=== PATIENT | male | born 1955 | race Caucasian/White ===

== ENCOUNTER 2022-04-18 10:00 | Emergency (ER) | payer MEDICARE, SELFPAY ==
--- NOTE | 2022-04-18 10:07 | ED.SKABFB ---
HPI - Skin/Abscess/Foreign Bdy General Chief complaint: Skin/Abscess/Foreign Body Stated complaint: Rash chest and back neck pain Time Seen by Provider: 04/18/22 10:07 Source: patient and RN notes reviewed History of Present Illness HPI narrative: Patient is 66-year-old male who presents the urgent care with complaints of a rash that is itchy, painful and tingling to the left chest and radiating to the left upper back. Patient states he noticed it this morning however he has had pain and tingling in his back and chest for the last several days. Patient denies of any use of [id number] medication for his pain. No acute distress noted. Patient aware of the plan of care. Some parts of this dictation were generated by voice recognition software and may contain typographical and/or grammatical inaccuracies. Related Data Home Medications Medication Instructions Recorded Confirmed calcium polycarbophil 625 mg 1,250 mg PO BID 10/30/19 12/12/21 tablet (FiberCon) omeprazole 20 mg capsule,delayed 20 mg PO DAILY 10/30/19 12/12/21 release cetirizine 10 mg tablet (Zyrtec) 10 mg PO DAILY PRN 01/31/21 12/12/21 Allergies Allergy/AdvReac Type Severity Reaction Status Date / Time amoxicillin Allergy Intermediate rash Verified 12/12/21 10:03 Penicillins Allergy Mild Rash Verified 12/12/21 10:03 Review of Systems Review of Systems: CONSTITUTIONAL: Denies fever, chills, or sweats. EYES: Denies visual changes, redness, or discharge. ENT: Denies rhinorrhea, congestion, sore throat, or otalgia. CARDIOVASCULAR: Denies chest pain, palpitations, or edema. RESPIRATORY: Denies cough or dyspnea. GASTROINTESTINAL: Denies abdominal pain, nausea, vomiting, or diarrhea. GENITOURINARY: Denies dysuria or hematuria. SKIN: Reports of a painful itchy rash to the left chest and left back MUSCULOSKELETAL: Denies back pain, joint pain, or myalgia. NEUROLOGIC: Denies headache, numbness, or weakness. All other systems reviewed are negative, except as documented in HPI. I PMF Past Medical History Medical History Gastro-esophageal reflux disease without esophagitis Hepatitis C antibody test negative (12/05/21) Hyperlipidemia Rhinosinusitis Sleep apnea in adult Family History Family History Mother Hypertension Family history of glaucoma Father Family history of heart disease in male family member before age 55 Other Diabetes mellitus Family history of malignant neoplasm Social History Social History Smoking end date: 10/28/77 Alcohol intake: current Comments At the time of my signature, I reviewed and agree with the nursing past medical, surgical, social, and family history. There is no relevant family history pertinent to the patient complaint. Exam Narrative: GENERAL: This is a well-nourished, well-developed patient, in no apparent distress. HEAD: normocephalic, atraumatic. EYES: PERRL. Sclera clear/white. Vision is grossly intact. EARS: External ears normal NOSE: External nose normal with no obvious nasal discharge, nares without redness, no rhinorrhea. THROAT: Mucous membranes moist NECK: Neck supple CARDIOVASCULAR: Regular rate and rhythm without murmurs, gallops, or rubs. RESPIRATORY: Clear to auscultation. Breath sounds equal bilaterally. No wheezes, rales, or rhonchi. SKIN: Vesicular erythemic herpes zoster dermatitis noted to the left chest above the breast following the dermatome to the posterior shoulder blade stopping directly at the spine. Warm, intact with no suspicious lesions or rash, good texture and turgor. NEURO: awake, alert, and oriented to person, place and time. There were no obvious focal neurologic abnormalities. EXTREMITIES: No clubbing, cyanosis, or edema. Course Course Level of Care: Express Care Visit Vital Signs Vital
[2022-04-18 10:09] VITALS: BP 123/90; PULSE 65; RESP 16; TEMP 36.4; O2SAT 99
== END 2022-04-18 10:26 | disposition home or self-care (01) ==
PROVIDERS: Emergency Provider Nurse Practitioner Family; PCP Family Medicine
DX: B02.9 Zoster without complications (principal); Z87.891 Personal history of nicotine dependence; K21.9 Gastro-esophageal reflux disease without esophagitis; E78.5 Hyperlipidemia, unspecified
CPT/HCPCS: 99213; G0463

== ENCOUNTER 2022-06-12 11:22 | Day surgery (SDC) | payer MEDICARE, SELFPAY ==
[2022-05-10 13:52] VITALS: BMI 29.3
[2022-05-24 14:22] VITALS: BMI 29.2
[2022-06-12 11:52] VITALS: BMI 28.4
[2022-06-12 12:00] VITALS: BP 128/72; PULSE 59; RESP 16; TEMP 36.3; O2SAT 99
--- NOTE | 2022-06-12 12:20 | P.HP_ITS ---
H&P: HPI History of Present Illness Date/Time: 06/12/22 12:20 Chief Complaint: GE reflux disease. And belching Narrative: this is a 66-year-old white male patient presents for EGD. He has a history of chronic GE reflux disease and heartburn. This currently controlled taking omeprazole. Recently has noted excess belching. Occasionally feels bloated. Recent colonoscopy unremarkable he was felt to have irritable bowel syndrome fiber supplementation has been implemented. He currently is on CPAP. Family history noncontributory. Review of Systems Review of Systems: Review of systems noncontributory. [facility] Past Medical History Medical History Gastro-esophageal reflux disease without esophagitis Hepatitis C antibody test negative (12/05/21) Hyperlipidemia Rhinosinusitis Sleep apnea in adult Family History Family History Mother Hypertension Family history of glaucoma Father Family history of heart disease in male family member before age 55 Other Diabetes mellitus Family history of malignant neoplasm Social History Social History Smoking status: Former smoker Smoking end date: 10/28/77 Alcohol intake: unknown Substance use type: does not use Living arrangements: with family Spiritual care concerns: No Meds Home Medications and Allergies Home Medications Medication Instructions Recorded Confirmed Type calcium polycarbophil 625 mg 1,250 mg PO BID 10/30/19 05/24/22 History tablet (FiberCon) omeprazole 20 mg capsule,delayed 20 mg PO DAILY 10/30/19 05/24/22 History release cetirizine 10 mg tablet (Zyrtec) 10 mg PO DAILY 01/31/21 05/24/22 History fluoxetine 20 mg capsule 20 mg PO DAILY #90 caps 01/18/22 05/24/22 Rx simvastatin 5 mg tablet See Rx Instructions .Route 04/11/22 05/24/22 Rx .COMPLEX #90 tabs Allergies Allergy/AdvReac Type Severity Reaction Status Date / Time amoxicillin Allergy Intermediate rash Verified 05/24/22 14:12 Penicillins Allergy Mild Rash Verified 05/24/22 14:12 Exam Narrative: Physical exam reveals patient to be alert. Vital signs stable. HEENT exam is unremarkable. Patient is anicteric. Lungs are clear to auscultation and percussion. Heart is without murmur or extra sounds. Abdomen bowel sounds present soft nontender with no organomegaly. Digital rectal exam normal. Assessment and Plan Assessment and plan (1) Belching: Code(s): R14.2 - Eructation Status: Acute Assessment and Plan: Patient complains of frequent belching. This likely is related to dietary intake. He does have acid reflux. Plan to try supplemental simethicone or Gas- X performed to see if there is any additional organic disease. (2) Gastro-esophageal reflux disease without esophagitis: Code(s): K21.9 - Gastro-esophageal reflux disease without esophagitis Status: Chronic Assessment and Plan: GE reflux disease described. Currently well controlled on omeprazole. Continue her at during Gas-X to control belching. EGD will be performed for screening purposes to exclude Carr's esophagus etc..
--- NOTE | 2022-06-12 12:33 | WPDANESEPPF ---
Anes - Initial Pre Proc Eval Procedure: Operation Date: 06/12/22 13:00 Proposed Procedures p Esophagogastroduodenoscopy - Galileo Montoya MD Date/Time: 06/12/22 12:33 Surgeon: Galileo Montoya MD Pre Op Diagnosis: Gerd Patient Data Age: 66 Gender: M Height: 1.8 m Weight: 92.6 kg Allergies Allergy/AdvReac Type Severity Reaction Status Date / Time amoxicillin Allergy Intermediate rash Verified 05/24/22 14:12 Penicillins Allergy Mild Rash Verified 05/24/22 14:12 Home Medications Medication Instructions Recorded Confirmed Type calcium polycarbophil 625 mg 1,250 mg PO BID 10/30/19 05/24/22 History tablet (FiberCon) omeprazole 20 mg capsule,delayed 20 mg PO DAILY 10/30/19 05/24/22 History release cetirizine 10 mg tablet (Zyrtec) 10 mg PO DAILY 01/31/21 05/24/22 History fluoxetine 20 mg capsule 20 mg PO DAILY #90 caps 01/18/22 05/24/22 Rx simvastatin 5 mg tablet See Rx Instructions .Route 04/11/22 05/24/22 Rx .COMPLEX #90 tabs Patient hx anesthesia problems: none Family hx anesthesia problems: none Results Review: All pre-operative results and documents have been reviewed as part of the pre-operative evaluation. [facility] Past Medical History Medical History Depression Gastro-esophageal reflux disease without esophagitis Hepatitis C antibody test negative (12/05/21) Hyperlipidemia Rhinosinusitis Sleep apnea in adult Family History Family History Mother Hypertension Family history of glaucoma Father Family history of heart disease in male family member before age 55 Other Diabetes mellitus Family history of malignant neoplasm Social History Social History Smoking status: Former smoker Smoking end date: 10/28/77 Alcohol intake: unknown Substance use type: does not use Living arrangements: with family Spiritual care concerns: No Anes - Eval Final PreProcedure Day of Procedure 06/12/22 12:33 Patient weight: overweight Heart: regular rate and rhythm Lungs: clear to auscultation Airway: Mallampati scale class II Neurological: alert and oriented Last oral intake: >/= 8 hours ASA classification: III Emergent: no Anesthetic plan: proceed Anesthesia type and monitoring: general GIVS and standard monitoring Results Review: All pre-operative results and documents have been reviewed as part of the pre-operative evaluation. Informed Consent: The patient's anesthetic plan and its attendant risks and benefits were discussed with the patient/family/POA. Questions were solicited and answers provided to the satisfaction of the patient/family/POA.
[2022-06-12] MEDS: LACTATED RINGERS 1,000 ML 150 ML IV CONT (12:42)
[2022-06-12 13:11] VITALS: BP 95/62; PULSE 56; RESP 18; O2SAT 97
[2022-06-12 13:21] VITALS: BP 119/78; PULSE 58; RESP 18; O2SAT 99
[2022-06-12 13:31] VITALS: PULSE 55; RESP 18; O2SAT 100
--- NOTE | 2022-06-12 13:55 | WPDANESPN ---
Anes - Prog Note Post-Op Date/Time: 06/12/22 13:55 Cardiovascular status: normal Respiratory status: normal Airway patency: baseline Mental status: baseline Post-Op hydration status: normal Vital Signs: Last Vital Signs Temp 36.3 C L 06/12/22 12:00 Pulse 55 L 06/12/22 13:31 Resp 18 06/12/22 13:31 BP 119/78 06/12/22 13:21 Pulse Ox 100 06/12/22 13:31 O2 Del Method Room Air 06/12/22 13:31 Pain Score (VAS): 0 I/O: Intake & Output 06/11/22 06/12/22 06/12/22 23:59 07:59 15:59 Intake Total 250 Balance 250 Patient Feedback: Patient satisfied with anesthetic care.
== END 2022-06-12 13:40 | disposition home or self-care (01) ==
PROVIDERS: PCP Family Medicine; Visit Provider Internal Medicine Gastroenterology
PROC: 0DJ08ZZ Inspection of Upper Intestinal Tract, Via Natural or Artificial Opening Endoscopic (ICD-10-PCS; CPT 43235; principal; 2022-06-12 13:00)
DX: K21.9 Gastro-esophageal reflux disease without esophagitis (principal)
CPT/HCPCS: 43239

== ENCOUNTER → 2023-09-09 11:22 | Outpatient (CLI) | payer MEDICARE, SELFPAY ==
--- NOTE | ~2023-09-09 | XR_ITS ---
XR knee LT 3V DATE: 09/09/2023 11:30 INDICATION: Left knee pain. No injury. TECHNIQUE: AP, lateral, sunrise views COMPARISON: 11/24/2014 left knee FINDINGS: There is enthesopathy of the patella at the quadriceps and patellar tendon insertions. There is mild suprapatellar knee joint effusion. There is mild periarticular spurring of the patella consistent with patellofemoral osteoarthritis. There is moderate loss of height of the medial compartment joint space and slight periarticular spurr ing of the medial and lateral tibial plateaus. No fracture or dislocation, periosteal reaction or bone destruction, radiopaque intra-articular loose body or chondrocalcinosis is detected. IMPRESSION: Patellar enthesopathy Mild knee joint effusion Tricompartment moderate osteoarthritis, most prominent at the medial compartment, Reviewed, dictated and finalized at location B. 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
== END ==
PROVIDERS: PCP Nurse Practitioner; Visit Provider Nurse Practitioner
DX: M25.462 Effusion, left knee (principal); M17.12 Unilateral primary osteoarthritis, left knee; M77.32 Calcaneal spur, left foot
CPT/HCPCS: 73562

== ENCOUNTER 2024-05-21 07:28 | Outpatient (NON) | payer MEDICARE, SELFPAY | END 2024-05-21 07:29 | disposition home or self-care (01) | LOC: ANHLAB 05-22 07:29 | PROVIDERS: PCP Family Medicine; Visit Provider Internal Medicine Gastroenterology | DX: R19.4 Change in bowel habit (principal) | CPT/HCPCS: 88305 ==

== ENCOUNTER 2024-05-21 08:31 | Day surgery (SDC) | payer MEDICARE, SELFPAY ==
[2024-04-08 15:12] VITALS: BMI 31.3
[2024-05-08 14:12] VITALS: BMI 30.7
--- NOTE | 2024-05-21 09:17 | WPDANESEPPF ---
Anes - Initial Pre Proc Eval Procedure: Operation Date: 05/21/24 10:30 Proposed Procedures p Esophagogastroduodenoscopy - Galileo Montoya MD s Diagnostic Colonoscopy - Galileo Montoya MD Date/Time: 05/21/24 09:17 Surgeon: Galileo Montoya MD Pre Op Diagnosis: Diarrhea unspecified, nausea Patient Data Age: 68 Gender: M Height: 1.8 m Weight: 100 kg Allergies Allergy/AdvReac Type Severity Reaction Status Date / Time amoxicillin Allergy Intermediate rash Verified 05/21/24 09:12 Penicillins Allergy Mild Rash Verified 05/21/24 09:12 Home Medications Medication Instructions Recorded Confirmed Type omeprazole 20 mg capsule,delayed 20 mg PO DAILY 10/30/19 05/08/24 History release cetirizine 10 mg tablet (Zyrtec) 10 mg PO DAILY 01/31/21 05/08/24 History fluticasone propionate 50 2 spray intranasal DAILY PRN 08/28/22 05/08/24 History mcg/actuation nasal allergy symptoms spray,suspension (Flonase Allergy Relief) naproxen sodium 220 mg capsule 220 mg PO BID PRN Pain 08/28/22 05/08/24 History vit C 50 mg-E 15 unit-zinc cit 4.5 2 tablet PO DAILY 08/28/22 05/08/24 History mg-lutein 2.5 mg-zeaxan chew tablet (Sofar Sounds) coQ10 (ubiquinol) 100 mg capsule 100 mg PO DAILY 09/09/23 05/08/24 History (Qunol Figueroa CoQ10) cholecalciferol (vitamin D3) 50 4,000 unit PO DAILY 03/09/24 05/08/24 History mcg (2,000 unit) capsule sodium,potassium,mag sulfates 17.5 See Rx Instructions PO .COMPLEX 04/08/24 Rx gram-3.13 gram-1.6 gram oral soln #354 mL (Suprep Bowel Prep Kit) fluoxetine 20 mg capsule 20 mg PO DAILY 05/08/24 05/08/24 History multivitamin with minerals-folic 1 tablet PO DAILY 05/08/24 05/08/24 History acid 0.4 mg tablet omega-3 fatty acids-vitamin E 2 cap PO BID 05/08/24 05/08/24 History 1,000 mg capsule peppermint oil 90 mg 90 mg PO TID PRN Indigestion 05/08/24 05/08/24 History capsule,delayed,extended release (IBgard) simethicone 180 mg capsule 180 mg PO BID PRN Indigestion 05/08/24 05/08/24 History (Phazyme) simvastatin 5 mg tablet 5 mg PO DAILY 05/08/24 05/08/24 History Patient hx anesthesia problems: none Family hx anesthesia problems: none Results Review: All pre-operative results and documents have been reviewed as part of the pre-operative evaluation. [facility] Past Medical History Medical History Depression Gastro-esophageal reflux disease without esophagitis Hepatitis C antibody test negative (12/05/21) Hyperlipidemia Rhinosinusitis Sleep apnea in adult Surgical History Surgical History (Updated 05/21/24 @ 09:17 by Robel Gonzalez MD) History of esophagogastroduodenoscopy (EGD) Family History Family History Mother Hypertension Family history of glaucoma Father Family history of heart disease in male family member before age 55 Other Diabetes mellitus Family history of malignant neoplasm Social History Social History Smoking status: Former smoker Tobacco type: cigarettes Smoking end date: 10/28/77 Alcohol intake: current Alcohol use details: occasional Substance use type: does not use Lack of Transportation: No Lack of Food: Never True Current Housing: I Have Housing Concerned About Future Housing: No Difficulty Paying Gas/Electric Bills: No Difficulty Paying for Meds: No Currently Unemployed: No Education: Bachelor's Degree Difficulty w/ Childcare or Family Care: No Living arrangements: with family Spiritual care concerns: No Anes - Eval Final PreProcedure Day of Procedure 05/21/24 09:17 Patient weight: obese Heart: regular rate and rhythm Lungs: clear to auscultation Airway: Mallampati scale class II Neurological: alert and oriented Last oral intake: >/= 8 hours ASA classification: III Emergent: no Anesthetic plan:
--- NOTE | 2024-05-21 09:20 | PM.HPGS ---
History of Present Illness History of Present Illness Consent: Risks, benefits, and alternatives have been discussed and questions answered. Patient agrees to proceed with procedure. Chief complaint: Diarrhea unspecified, nausea Narrative: Param Brown is a 68 year old male presents for both colonoscopy and EGD. Patient reports irregular stools. Over the last 1 year he also feels gassy with belching and flatus. He has vague abdominal pain and gassiness. He has cramps. Bowels habits are regular. Occasionally will spot of bright red blood per rectum. Patient referred for colonoscopy an EGD. Colonoscopy and EGD 5 years ago were unremarkable. Workup currently this in the GI office. Review of Systems Review of Systems: All systems reviewed & are unremarkable except as noted in HPI and below PMFSH Past Medical History Medical History Depression Gastro-esophageal reflux disease without esophagitis Hepatitis C antibody test negative (12/05/21) Hyperlipidemia Rhinosinusitis Sleep apnea in adult Surgical History Surgical History (Updated 05/21/24 @ 09:17 by Robel Gonzalez MD) History of esophagogastroduodenoscopy (EGD) Family History Family History Mother Hypertension Family history of glaucoma Father Family history of heart disease in male family member before age 55 Other Diabetes mellitus Family history of malignant neoplasm Social History Social History Smoking status: Former smoker Tobacco type: cigarettes Smoking end date: 10/28/77 Alcohol intake: current Alcohol use details: occasional Substance use type: does not use Lack of Transportation: No Lack of Food: Never True Current Housing: I Have Housing Concerned About Future Housing: No Difficulty Paying Gas/Electric Bills: No Difficulty Paying for Meds: No Currently Unemployed: No Education: Bachelor's Degree Difficulty w/ Childcare or Family Care: No Living arrangements: with family Spiritual care concerns: No Meds Home Medications and Allergies Home Medications Medication Instructions Recorded Confirmed Type omeprazole 20 mg capsule,delayed 20 mg PO DAILY 10/30/19 05/21/24 History release cetirizine 10 mg tablet (Zyrtec) 10 mg PO DAILY 01/31/21 05/21/24 History fluticasone propionate 50 2 spray intranasal DAILY PRN 08/28/22 05/21/24 History mcg/actuation nasal allergy symptoms spray,suspension (Flonase Allergy Relief) naproxen sodium 220 mg capsule 220 mg PO BID PRN Pain 08/28/22 05/21/24 History vit C 50 mg-E 15 unit-zinc cit 4.5 2 tablet PO DAILY 08/28/22 05/21/24 History mg-lutein 2.5 mg-zeaxan chew tablet (Maven7) coQ10 (ubiquinol) 100 mg capsule 100 mg PO DAILY 09/09/23 05/21/24 History (Qunol Figueroa CoQ10) cholecalciferol (vitamin D3) 50 4,000 unit PO DAILY 03/09/24 05/21/24 History mcg (2,000 unit) capsule fluoxetine 20 mg capsule 20 mg PO DAILY 05/08/24 05/21/24 History multivitamin with minerals-folic 1 tablet PO DAILY 05/08/24 05/21/24 History acid 0.4 mg tablet omega-3 fatty acids-vitamin E 2 cap PO BID 05/08/24 05/21/24 History 1,000 mg capsule peppermint oil 90 mg 90 mg PO TID PRN Indigestion 05/08/24 05/21/24 History capsule,delayed,extended release (IBgard) simethicone 180 mg capsule 180 mg PO BID PRN Indigestion 05/08/24 05/21/24 History (Phazyme) simvastatin 5 mg tablet 5 mg PO DAILY 05/08/24 05/21/24 History Allergies Allergy/AdvReac Type Severity Reaction Status Date / Time amoxicillin Allergy Intermediate rash Verified 05/21/24 09:12 Penicillins Allergy Mild Rash Verified 05/21/24 09:12 Exam Narrative: Physical exam reveals patient to be alert. Vital signs stable. HEENT exam is unremarkable. Patient is anicteric. Lungs are clear to auscultation a
[2024-05-21 09:26] VITALS: BP 124/69; PULSE 88; RESP 18; TEMP 36.3; O2SAT 98; BMI 29.2
[2024-05-21] MEDS: LACTATED RINGERS 1,000 ML 150 ML IV CONT (09:39)
[2024-05-21 10:15] VITALS: BP 93/52; PULSE 50; RESP 14; O2SAT 100
[2024-05-21 10:25] VITALS: BP 107/64; PULSE 54; RESP 16; O2SAT 99
--- NOTE | 2024-05-21 10:32 | WPDANESPN ---
Anes - Prog Note Post-Op Date/Time: 05/21/24 10:32 Cardiovascular status: normal Respiratory status: normal Airway patency: baseline Mental status: baseline Post-Op hydration status: normal Vital Signs: Last Vital Signs Temp 36.3 C L 05/21/24 09:26 Pulse 54 L 05/21/24 10:25 Resp 16 05/21/24 10:25 BP 107/64 05/21/24 10:25 Pulse Ox 99 05/21/24 10:25 O2 Del Method Room Air 05/21/24 10:25 Pain Score (VAS): 0/10 I/O: Intake & Output 05/20/24 05/21/24 05/21/24 23:59 07:59 15:59 Intake Total 500 Balance 500 Patient Feedback: Patient satisfied with anesthetic care.
[2024-05-21 10:35] VITALS: BP 121/79; PULSE 56; RESP 20; O2SAT 100
== END 2024-05-21 10:43 | disposition home or self-care (01) ==
PROVIDERS: PCP Family Medicine; Visit Provider Internal Medicine Gastroenterology
PROC: 0DJ08ZZ Inspection of Upper Intestinal Tract, Via Natural or Artificial Opening Endoscopic (ICD-10-PCS; CPT 43235; principal; 2024-05-21 10:30)
PROC: 0DJD8ZZ Inspection of Lower Intestinal Tract, Via Natural or Artificial Opening Endoscopic (ICD-10-PCS; CPT 45378; 2024-05-21 10:30)
DX: R19.4 Change in bowel habit (principal); R19.7 Diarrhea, unspecified; R11.0 Nausea; D12.5 Benign neoplasm of sigmoid colon; K57.30 Diverticulosis of large intestine without perforation or abscess without bleeding; K64.8 Other hemorrhoids; R14.2 Eructation; K44.9 Diaphragmatic hernia without obstruction or gangrene
CPT/HCPCS: 45380; 43239

== ENCOUNTER 2024-12-04 07:45 | Outpatient (CLI) | payer MEDICARE, SELFPAY ==
--- NOTE | ~2024-12-04 | US_ITS ---
EXAMINATION: US abdomen limited DATE: 12/04/2024 08:38 INDICATION: Hepatic insufficiency TECHNIQUE: Multiple grayscale and Doppler ultrasound images of the abdomen were obtained. COMPARISON: None FINDINGS: The pancreatic head and body are normal in appearance. The pancreatic tail is not visualized. Liver has normal contour, with a smooth surface. There is increased parenchymal echogenicity and coarsened echotexture consistent with diffuse hepatic steatosis. No liver lesion identified. No intrahepatic b iliary duct dilation suspected. Portal venous flow was seen in the hepatopetal, normal direction and has normal Doppler waveform. The gallbladder is normal in appearance. There is no cholelithiasis. Th e common bile duct measures 4 mm, which is normal. 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 The inferior vena cava is not clearly visualized. IMPRESSION: 1. Diffuse hepatic steatosis. Reviewed, dictated and finalized at location B. E WATER WORKER
== END 2024-12-04 07:46 | disposition home or self-care (01) ==
PROVIDERS: PCP Family Medicine; Visit Provider Nurse Practitioner Family
DX: K76.0 Fatty (change of) liver, not elsewhere classified (principal); K86.89 Other specified diseases of pancreas
CPT/HCPCS: 76705

== ENCOUNTER 2025-09-20 10:48 | Emergency (ER) | payer MEDICARE, SELFPAY ==
[2025-09-20 10:48] VITALS: BP 126/67; PULSE 78; RESP 16; TEMP 36.6; O2SAT 100
[2025-09-20] MEDS: TETANUS,DIPHTHERIA,AC PERTUSSIS ADULT 0.5 ML (ADACEL) IM (11:06)
--- NOTE | 2025-09-20 11:15 | ED.WOUNDLAC ---
HPI - Wound/Laceration General Chief Complaint: Wound/Laceration Stated Complaint: cut left hand thumb with saw Time Seen by Provider: 09/20/25 11:07 Source: patient Mode of arrival: ambulatory Limitations: no limitations History of Present Illness HPI narrative: 70 years old white male, would work at home, chain so injury to left thump prior to arrival. Unknown last tetanus, no other injuries Related Data Home Medications ?Medication ?Instructions ?Recorded ?Confirmed ?Last Taken ?Type cetirizine 10 mg tablet (Zyrtec) 10 mg PO DAILY 01/31/21 08/24/25 05/17/24 History fluticasone propionate 50 2 spray intranasal DAILY PRN 08/28/22 08/24/25 Unknown History mcg/actuation nasal allergy symptoms spray,suspension (Flonase Allergy Relief) naproxen sodium 220 mg capsule 220 mg PO BID PRN Pain 08/28/22 08/24/25 Unknown History vit C 50 mg-E 15 unit-zinc cit 4.5 2 tablet PO DAILY 08/28/22 08/24/25 Unknown History mg-lutein 2.5 mg-zeaxan chew tablet ([facility]) coQ10 (ubiquinol) 100 mg capsule 100 mg PO DAILY 09/09/23 08/24/25 05/17/24 History (Qunol Figueroa CoQ10) cholecalciferol (vitamin D3) 50 4,000 unit PO DAILY 03/09/24 08/24/25 05/17/24 History mcg (2,000 unit) capsule multivitamin with minerals-folic 1 tablet PO DAILY 05/08/24 08/24/25 Unknown History acid 0.4 mg tablet peppermint oil 90 mg 90 mg PO TID PRN Indigestion 05/08/24 08/24/25 Unknown History capsule,delayed,extended release (IBgard) simethicone 180 mg capsule 180 mg PO BID PRN Indigestion 05/08/24 08/24/25 Unknown History (Phazyme) omeprazole 20 mg capsule,delayed 40 mg PO DAILY 02/10/25 08/24/25 Unknown History release Allergies Allergy/AdvReac Type Severity Reaction Status Date / Time amoxicillin Allergy Intermediate rash Verified 08/24/25 09:55 Penicillins Allergy Mild Rash Verified 08/24/25 09:55 Review of Systems Review of Systems: All systems reviewed & are unremarkable except as noted in HPI and below PMFSH Past Medical History Medical History Depression Hepatitis C antibody test negative (12/05/21) Rhinosinusitis Gastro-esophageal reflux disease without esophagitis Hyperlipidemia Sleep apnea in adult Surgical History Surgical History History of esophagogastroduodenoscopy (EGD) Family History Family History Mother Hypertension Family history of glaucoma Father Family history of heart disease in male family member before age 55 Other Diabetes mellitus Family history of malignant neoplasm Social History Social History Smoking status: Former smoker Tobacco type: cigarettes Smoking end date: 10/28/77 Alcohol intake: current Alcohol use details: occasional Substance use type: does not use Lack of Transportation: No Lack of Food: Never True Current Housing: I Have Housing Concerned About Future Housing: No Difficulty Paying Gas/Electric Bills: No Difficulty Paying for Meds: No Currently Unemployed: No Education: Bachelor's Degree Difficulty w/ Childcare or Family Care: No Living arrangements: with family Spiritual care concerns: No Exam Narrative: General appearance: Well-developed, well-nourished Skin: Normal color Head: Normocephalic, nontraumatic Vascular: Normal peripheral pulses, normal capillary refill. Musculoskeletal: The thump exam showing 1.3 mm flap laceration hanging by a thread. Subcutaneous. Neurologic: Alert and oriented ?3, LENS GRINDER AND POLISHER is normal as tested, no gross motor deficit Course Vital Signs Vital signs: Vital Signs Temperature 36.6 C 09/20/25 10:48 Pulse Rate 78 09/20/25 10:48 Respiratory Rate 16 09/20/25 10:48 Blood Pressure 126/67 09/20/25 10:48 Pulse Oximetry 100 09/20/25 10:48 Oxygen Delivery Room Air 09/20/25 10:48 Temperature 36.6 C 09/20/25 12:38 Pulse Rate 70 09/20/25 12:38 Respiratory Rate 17 09/20/25 12:38 Blood Pressure 156/65 H 09/20/25 12:38 Pulse Oximetry 100 09/20/25 12:38 Oxygen Delivery Room Air 09/20/25 12:38 Procedures Laceration Laceration 1: Date: 09/20/25 Site: hand Side (If applicable): left (Left thumb) Size (cm): 1.3 Description: flap, irregular and clean Depth: simple, single layer Local Anesthetic: lidocaine 1% Amount of anesthesia used (mL): 10 Pre-repair: wound explored, irrigated and other (Parts of the skin flap is missing) ====== Skin Level ====== Skin layer closed with: other (ethilon) Size (cm): 6-0 Number of sutures: 7 Technique: simple, interrupted ====== Subcutaneous Layer ====== ====== Muscle Layer ====== ====== Tendon Layer ====== MDM - Wound/Laceration MDM Narrative Medical decision making narrative: Flap laceration left thumb hanging by a thread, my plan to suture it and given chance for recovery. The possibility for healing well 50/50. Differential Diagnosis Differential diagnosis: Likely avulsion of skin Critical Care Time Critical Care Time Critical Care Time: No Discharge Plan Discharge Clinical Impression: Finger laceration Patient Disposition: Home Condition: Stable Instructions: Antibiotic Form, Care For Your Stitches (ED), Laceration (ED) Additional Instructions: Return if symptoms are worsening , call your family physician for appointment, take Tylenol ibuprofen as as needed for aches and pain, continue home medications. Topical Neosporin for his neck 3 days Remove sutures in 8 days, Patient Language: Malawian Prescriptions: New clindamycin HCl [Cleocin HCl] 300 mg capsule 300 mg PO Q6H 7 Days Qty: 28 0RF No Action naproxen sodium 220 mg capsule 220 mg PO BID PRN (Reason: Pain) Ocuvite Eye Health 50 mg-15 unit- 4.5 mg-2.5 mg tablet,chewable 2 tablet PO DAILY fluticasone propionate [Flonase Allergy Relief] 50 mcg/actuation spray,suspension 2 spray intranasal DAILY PRN (Reason: allergy symptoms) Rx Instructions: administer into each nostril cholecalciferol (vitamin D3) 50 mcg (2,000 unit) capsule 4,000 unit PO DAILY omeprazole 20 mg capsule,delayed release(DR/EC) 40 mg PO DAILY Zenpep 60,000-189,600- 252,600 unit capsule,delayed release(DR/EC) 1 cap PO QID Qty: 300 11RF Rx Instructions: administer with meals and/or snacks methylprednisolone [Medrol (Mayur)] 4 mg tablets,dose pack See Rx Instructions PO PER PKG DIR Qty: 21 0RF Rx Instructions: PO PER PKG DIR cetirizine [Zyrtec] 10 mg tablet 10 mg PO DAILY coQ10 (ubiquinol) [Qunol Figueroa CoQ10] 100 mg capsule 100 mg PO DAILY simvastatin 5 mg tablet See Rx Instructions .ROUTE .COMPLEX Qty: 90 1RF Dose Instruction: TAKE 1 TABLET DAILY Rx Instructions: TAKE 1 TABLET DAILY icosapent ethyl 1 gram capsule 2 g PO BID Qty: 360 1RF fluoxetine 20 mg capsule See Rx Instructions .ROUTE .COMPLEX Qty: 90 1RF Dose Instruction: TAKE 1 CAPSULE DAILY Rx Instructions: TAKE 1 CAPSULE DAILY multivit with min-folic acid [Adult One Daily Multivitamin] 0.4 mg Tablet 1 tablet PO DAILY IBgard 90 mg Capsule,Delayed,Extend.Release 90 mg PO TID PRN (Reason: Indigestion) simethicone [Phazyme] 180 mg Capsule 180 mg PO BID PRN (Reason: Indigestion) Follow-up/Referrals: Bernarda Banks DO [Primary Care Provider, Family Practice]
[2025-09-20] MEDS: LIDOCAINE 1% LOCAL INJ 10 ML VIAL INFILTRATE (11:18)
[2025-09-20] MEDS: NEOMYCIN/POLYMYXIN/BACITRACIN OINTMENT 15 GM TUBE 1 APPLIC TOPICAL (12:31)
[2025-09-20 12:38] VITALS: BP 156/65; PULSE 70; RESP 17; TEMP 36.6; O2SAT 100
--- OUTSIDE RECORDS SUMMARY | 2025-09-20 12:47 | XMS_ITS | Encounter Summary ---
Author Organization [facility] Address [address] [place] [id number] Care Team Providers Care Aluminum Fabrication Supervisor Name Role Phone Unavailable Primary Care Provider Unavailabl e Encounter Details Date Type Department Care Team (Late st Contact Info) Description 12/30/2015 Abstract [facility] CONVERSION [id number] [place] [address] , Generic Conversion, Social History Tobacco Use Types Packs/Day Years Used Date Smoking Tobacco: Never Assessed Sex and Gender Information Value Date Recorded Sex Assigned at Not on file Legal Sex Male 7:59 PM CDT Gender Identity Not on file Sexual Orientation Not on file documented as of this encounter Plan of Treatment Not on file documented as of this encounter Visit Diagnoses Not on filedocumented in this encounter
--- OUTSIDE RECORDS SUMMARY | 2025-09-20 12:47 | XMS_ITS | Clinical Summary ---
Author Organization [facility] Address [address] [place] [address] Care Team Providers Care Air Dispatcher Name Role Phone Unavailable Primary Care Provider Unavailabl e Social History Tobacco Use Types Packs/Day Years Used Date Smoking Tobacco: Never Assessed Sex and Gender Information Value Date Recorded Sex Assigned at Not on file Legal Sex Male 7:59 PM CDT Gender Identity Not on file Sexual Orientation Not on file Plan of Treatment Health Maintenance Due Date Last Done Comments Colorectal Cancer Screening Colonoscopy (10 Years) 1953 Hepatitis C 1971 DTaP, Tdap and Td Vaccines ( 1 - Tdap) 1972 Pneumococcal Vaccine: 50+ Ye ars (1 of 1 - PCV) 2003 Zoster Vaccines (1 of 2) 2003 COVID-19 Vaccine ( - 2024-2 6 season) 2025 Influenza Adult (#1) 2025 RSV Immunization or 60+ Years (1 - 1-dose 75+ series) 2028 Hepatitis A Vaccines Aged Out No long er eligible based on patient's age to complete this topic Meningococcal B Vaccine Aged Out No l onger eligible based on patient's age to complete this topic Meningococcal Vaccine Aged Out No conhcita rohit eligible based on patient's age to complete this topic RSV Immunizations Under 20 Months Aged Out No longer eligible based on patient's age to complete this topic
--- OUTSIDE RECORDS SUMMARY | 2025-09-20 13:19 | XMS_ITS | Clinical Summary ---
Author Organization [facility] Address [address] [address] [place] [address] Phone Care Team Providers Care Farm Machine Tender Name Role Phone Unavailable Primary Care Provider Unavailabl e Medications acyclovir (ZOVIRAX) 5 % Ointment APPLY TOPICALLY TO THE AFFECTED AREA(S) 6 TIMES PER DAY FOR 7 DAYS 30 Gram 2 Active HYDROcodone-miriam taminophen (NORCO) 5-325 mg tablet Take 1 Tablet by mouth every 6 hours as needed for pain. Max Daily Amount: 4 Tablets 20 Tablet 04/24/2022 4:26 PM CDT 2 Active acyclovir (ZOVIRAX) 800 mg tablet Take 1 Tablet (800 mg) by mouth 3 times daily for 7 days. 21 Tablet 04/24/2022 4:26 PM CDT 2 Active gabapentin (NEURONTIN) 300 mg capsule Take 1 Capsule (300 mg) by mouth daily. 90 Capsule 04/27/2022 5:21 PM CDT 2 Active FLUoxetine (PROzac) 20 mg capsule Take 1 Capsule (20 mg) by mouth daily. 90 Capsule 1 2 Active simvastatin (ZOCOR) 5 mg tablet Take 1 Tablet (5 mg) by mouth daily. 90 Tablet 1 3 Active azithromycin (ZITHROMAX) 250 mg tablet TAKE 2 TABLETS BY MOUTH ON DAY 1, THE 1 TABLET BY MOUTH ON DAYS 2-5 6 Tablet 12/26/2023 10:11 AM DESIGN MAKER 4 Active methylPREDNISol one (MEDROL DOSPACK) 4 mg Tablets, Dose Pack TAKE DIRECTED ON PACKAGE 21 Each 12/26/2023 10:11 AM DESIGN MAKER 4 Active sodium, potassium and magnesium sulfates (SUPREP) 17.5-3.13-1.6 gram Recon Soln FOLLOW DOCTORS WRITTEN INSTRUCTIONS 354 mL 04/10/2024 11:29 AM CDT 4 Active doxycycline hyclate (VIBRAMYCIN) 100 mg tablet Take 1 Tablet (100 mg) by mouth daily. 14 Tablet 08/07/2024 12:07 PM CDT 4 Active methylPREDNISol one (MEDROL DOSPACK) 4 mg Tablets, Dose Pack Take tablets by mouth per the package directions. 21 Each 08/07/2024 12:07 PM CDT 4 Active lipase-protease -amylase (Zenpep) 60,000-189,600- 252,600 unit Capsule, Delayed Release(E.C.) Take 1 Capsule by mouth 4 times daily. ADMINISTER WITH MEALS AND/OR SNACKS. 300 Capsule 11 07/14/2025 12:39 PM CDT 5 Active methylPREDNISol one (MEDROL DOSPACK) 4 mg Tablets, Dose Pack TAKE DIRECTED ON PACKAGE 21 Each 02/10/2025 4:10 PM CDT 5 Active icosapent ethyL (VASCEPA) 1 gram Capsule Take 2 Capsules (2 Grams) by mouth 2 times daily. 360 Capsule 1 06/24/2025 2:07 PM CDT 5 Active methylPREDNISol one (MEDROL DOSPACK) 4 mg Tablets, Dose Pack TAKE DIRECTED ON PACKAGE. 21 Each 08/24/2025 2:03 PM CDT 5 Active clindamycin HCL (CLEOCIN) 300 mg Capsule Take 1 Capsule (300 mg) by mouth every 6 hours for 7 days. 28 Capsule 5 09/27/20 25 Active Encounters Date Type Department Care Team Description 06/29/2025 External Device Data [facility] ABSTRACTION Provider, Abstract from Last 3 Months Social History Tobacco Use Types Packs/Day Years Used Date Smoking Tobacco: Never Assessed Sex and Gender Information Value Date Recorded Sex Assigned at Not on file Legal Sex Male 3:27 PM CDT Gender Identity Not on file Sexual Orientation Not on file Plan of Treatment Health Maintenance Due Date Last Done Comments DTAP/TDAP/TD VACCINES (1 - Tdap) 1972 COLORECTAL SCREENING 1998 Colorectal Cancer Screening 1998 FIT-DNA Q 3 years 1998 FIT/FOBT Q 1 year 1998 Flex Sig/CT Colonography Q 5 years 1998 PNEUMOCOCCAL VACCINE 50+ YEARS (1 of 1 - PCV) 09/06/20 03 ZOSTER VACCINE (1 of 2) 2003 INFLUENZA VACCINE (#1) 2025 RSV VACCINE (60+ or ) (1 - 1-dose 75+ series) 2028 Insurance RX [employer] RX Member Subscriber Plan / Payer (Ef fective 2022-Present) Name:Param Brown Relation to Subscriber:Self Name:Param Brown Subscriber ID:Not on file Payer ID:Not on file Group ID:[id number] Type:RX Medicare Part D Address: [address] RX AETNA Medicare Part D RX AETNA Medicare Part D Medicare Part D
--- OUTSIDE RECORDS SUMMARY | 2025-09-20 13:19 | XMS_ITS | Encounter Summary ---
Author Organization [facility] Address [address] [place] [address] Care Team Providers Care Attending Urologist Name Role Phone Unavailable Primary Care Provider Unavailabl e Encounter Details Date Type Department Care Team (Late st Contact Info) Description 12/30/2015 Abstract [facility] CONVERSION [address] [place] [address] , Generic Conversion, Social History Tobacco Use [...]
--- OUTSIDE RECORDS SUMMARY | 2025-09-20 13:19 | XMS_ITS | Clinical Summary ---
Author Organization [facility] Address [address] [place] [address] Care Team Providers Care Montessori Teacher Name Role Phone Unavailable Primary Care Provider [...] this topic Meningococcal Vaccine Aged Out No conchita rohit eligible based on patient's age to complete this topic RSV Immunizations Under 20 Months Aged Out No longer eligible based on patient's age to complete this topic
== END 2025-09-20 12:38 | disposition home or self-care (01) ==
PROVIDERS: Emergency Provider Emergency Medicine; PCP Family Medicine
DX: S61.012A Laceration without foreign body of left thumb without damage to nail, initial encounter (principal); E78.5 Hyperlipidemia, unspecified; Z87.891 Personal history of nicotine dependence; W29.3XXA Contact with powered garden and outdoor hand tools and machinery, initial encounter; Z23 Encounter for immunization
CPT/HCPCS: 12001; 90471; 90715; 99283; A9270; J2003